=== PATIENT | female | born 1960 | race Caucasian/White ===

== ENCOUNTER 2024-09-02 14:12 | Emergency (ER) | payer OTHER, SELFPAY ==
[2024-09-02] VITALS (8 sets, daily range): BP systolic 78–124; BP diastolic 46–64; PULSE 54–65; RESP 14–18; TEMP 36.4; O2SAT 85–99
--- NOTE | ~2024-09-02 | XR_ITS ---
EXAMINATION: XR chest 1V DATE: 09/02/2024 15:38 INDICATION: Right lower quadrant abdominal pain. Nontraumatic right hip pain. TECHNIQUE: A single frontal view of the chest was obtained. COMPARISON: None. FINDINGS: There is mild atelectasis at left lung base. There is a small left pleural effusion. No pne umothorax. The heart size is normal. There are changes of anterior fusion procedure in cervical spine . IMPRESSION: 1. Small left pleural effusion. 2. Mild atelectasis at left lung base. Reviewed, dictated and finalized at location A.
--- NOTE | ~2024-09-02 | CT_ITS ---
CT abdomen pelvis w con Ordering provider: Yusuf Mart MD History: 64 years Female with . Right lower quadrant, right groin, right hip pain . Comparison: None. Technique: CT abdomen and pelvis with IV and without oral contrast. Automated exposure control and it erative reconstruction technique were employed. The dose-length product was 703.54 mGy-cm. 100 mL Omn ipaque 350 was given IV. Findings: VISUALIZED LOWER CHEST: Dependent atelectatic changes. 2 densities seen in the lateral aspect of the right lung base which may be focal atelectasis or nodules measuring 1.4 and 1.1 cm. Tiny nodule seen in the lingula measuring 7 mm. 3 months follow-up advised. UPPER ABDOMINAL ORGANS: Liver: Small hypodense area seen in the segment #8 which measures 12 cm. Most likely a cyst versus fo corrina fat infiltration. Ultrasound evaluation advised. Gallbladder: Distended. No stones. Spleen: Normal. Benign calcifications. Stomach/duodenum: Normal. Pancreas: Normal. Adrenals: Normal. Kidneys: Tiny cysts in the right and left kidney lower pole. PELVIC ORGANS: The bladder is underfilled. BOWEL AND MESENTERY: Colon: No evidence of diverticulitis. Normal appendix. Small Bowel: Normal. No obstruction. Peritoneum/mesentery: No free air or free fluid. No mesenteric lymphadenopathy. RETROPERITONEUM: Mild atheromatous disease of the abdominal aorta. No retroperitoneal lymphadenopat hy. MUSCULOSKELETAL: Superficial soft tissues: The superficial soft tissues are normal. Bones: Age appropriate degenerative changes of the spine. Bilateral sacroiliitis. IMPRESSION: 1. No evidence of appendicitis, diverticulitis or intestinal obstruction. 2. Distended gallbladder with no stones. 3. Hypodensity in the liver which may be focal fat infiltration and less likely a cyst. Ultrasound e valuation advised. Reviewed, dictated and finalized at location A. IMPRESSION: 1. No evidence of appendicitis, diverticulitis or intestinal obstruction. 2. Distended gallbladder with no stones. 3. Hypodensity in the liver which may be focal fat infiltration and less likel y a cyst. Ultrasound evaluation advised.
--- NOTE | ~2024-09-02 | XR_ITS ---
EXAMINATION: XR hip RT 2V w AP pelvis DATE: 09/02/2024 15:38 INDICATION: Right hip pain. TECHNIQUE: An anteroposterior view of the pelvis and 2 views of right hip were obtained. COMPARISON: None. FINDINGS: There is normal alignment at the hips. No fracture. There is mild osteoarthritis of the hip s. IMPRESSION: 1. Mild osteoarthritis of the hips. Reviewed, dictated and finalized at location A.
--- NOTE | 2024-09-02 14:41 | ED.GENADULT ---
HPI - General Adult General Chief complaint: Weakness Stated complaint: R pain radiating Time Seen by Provider: 09/02/24 14:40 Source: patient and EMS Mode of arrival: EMS History of Present Illness HPI narrative: Patient used the live by herself, had history of frequent falls, her daughter who lives close to us that concern and moved her to her house in the last 2 weeks. Patient workup today okay, at noon started having pain at the right hip anterior. She denies any trauma, fever, chills, nausea, vomiting, numbness or tingling or weakness of the right lower extremity. Patient reports her right hip pain worse with certain movement and position, better laying still History of diabetes, hypertension, hyperlipidemia, denies any anti-platelet or anticoagulant medication, does not smoke and drinks occasionally. Related Data Allergies Allergy/AdvReac Type Severity Reaction Status Date / Time No Known Allergies Allergy Verified 09/02/24 14:37 Review of Systems Review of Systems: All systems reviewed & are unremarkable except as noted in HPI and below Exam Narrative: General appearance: Well-developed, well-nourished Skin: Normal color Head: Normocephalic, nontraumatic Eyes: Clear conjunctiva ENT: Oropharynx normal, ears normal, nose normal Neck: Supple, nontender Chest and respiratory: Airway patent, no respiratory distress, no accessory muscle use Heart: Regular rate/rhythm Abdomen: Soft, nontender, no organomegaly, quiet bowel sounds Vascular: Normal peripheral pulses, normal capillary refill. Musculoskeletal: [id number] tenderness right iliac crest anteriorly and right hip anteriorly, limited range of motion of the right hip, no bruises, no swelling, no deformity. Neurologic: Alert and oriented ?3, EAP SPECIALIST is normal as tested, no gross motor deficit Course Vital Signs Vital signs: Vital Signs Temperature 36.4 C 09/02/24 14:18 Pulse Rate 54 L 09/02/24 14:18 Respiratory Rate 16 09/02/24 14:18 Blood Pressure 78/46 L 09/02/24 14:18 Pulse Oximetry 99 09/02/24 14:18 Oxygen Delivery Room Air 09/02/24 14:18 Temperature 36.4 C 09/02/24 14:18 Pulse Rate 61 09/02/24 18:00 Respiratory Rate 14 09/02/24 18:00 Blood Pressure 107/64 09/02/24 18:00 Pulse Oximetry 95 09/02/24 18:00 Oxygen Delivery Nasal Cannula 09/02/24 14:36 Oxygen Flow Rate 2 09/02/24 14:36 Medical Decision Making MDM Narrative Medical decision making narrative: PATIENT CAME TO THE ED WITH RIGHT ILIAC CREST PAIN ANTERIORLY AND RIGHT HIP. VITAL SIGNS SHOWING BLOOD PRESSURE 78/46 WHICH I WAS TOLD BY THE NURSE THAT WAS WRONG AND REPEATED BLOOD PRESSURE WAS WITHIN NORMAL LIMIT. PHYSICAL EXAMINATION SHOWED TENDERNESS AT THE RIGHT ILIAC CREST ANTERIORLY AND SLIGHT LIMITED RANGE OF MOTION OF THE RIGHT HIP DIFFERENTIAL DIAGNOSIS OSTEOARTHRITIS, STRAIN, SPRAIN, CONTUSION OF THE RIGHT HIP. POSSIBLE INTRA-ABDOMINAL PATHOLOGY. BLOOD WORKUP TODAY SHOWED WBC OF 7.5 CREATININE OF 1.1 URINALYSIS SHOWED EVIDENCE OF INFECTION CHEST X-RAY SHOWED NO ACUTE ABNORMALITY X-RAY OF THE RIGHT HIP WITH PELVIS SHOWED OSTEOARTHRITIS, CT ABDOMEN AND PELVIS WITH IV CONTRAST SHOWED NO SIGNIFICANT ABNORMALITY PATIENT RECEIVED 1 G OF ROCEPHIN IV, REPEATED BLOOD PRESSURE SHOWED NORMAL RESULTS, PATIENT WAS ABLE TO STAND AND WALK IN THE ED PRIOR TO DISCHARGE. DIAGNOSIS URINARY TRACT INFECTION AND RIGHT HIP OSTEOARTHRITIS DISCHARGED ON MACROBID AND DICLOFENAC THE PT WAS DISCHARGED TO HOME.THE PT,S CONDITION UPON DISCHARGE WAS FAIR,EDUCATION WAS PROVIDED TO THE PT IN REFERENCE TO THE FINAL IMPRESSION,DISCHARGE STUDY RESULTS,TREATMENT,PROGNOSIS AND NEED FOR FOLLOW UP . Medic
[2024-09-02] MEDS: SODIUM CHLORIDE 0.9% IV 1,000 ML 999 ML IV CONT (14:57)
[2024-09-02 15:19] LABS: Basophils Absolute Auto 0.1 K/mm3 (0.0-0.1); Basophils Percent Auto 0.7 % (0.2-1.2); Eosinophils Absolute Auto 0.1 K/mm3 (0-0.3); Eosinophils Percent Auto 0.8 % (0-4.4); Hematocrit 36.3 % (37.0-47.0); Hemoglobin 11.4 g/dL (12.0-15.0); Immature Granulocyte Absolute 0.03 K/mm3 (0.00-0.031); Immature Granulocyte Percent A 0.4 % (0-0.5); Lymphocytes Absolute Auto 2.14 K/mm3 (0.9-3.2); Lymphocytes Percent Auto 28.5 % (18.3-44.2); Mean Corpuscular HGB Conc 31.4 g/dl (32-36); Mean Corpuscular Hemoglobin 30.1 pg (26-34); Mean Corpuscular Volume 95.8 fl (80-100); Mean Platelet Volume 11.4 fl (7.4-10.4); Monocytes Absolute Auto 0.8 K/mm3 (0.1-0.6); Monocytes Percent Auto 10.8 % (2.6-8.5); Neutrophils Absolute Auto 4.4 K/mm3 (1.3-6.7); Neutrophils Percent Auto 58.8 % (45.5-73.1); Platelet Count Result 358 k/mm3 (150-375); Red Blood Count 3.79 M/mm3 (4.2-5.4); Red Cell Distribution Width 14.4 % (11.5-14.5); White Blood Count 7.5 K/mm3 (4.5-10.0)
[2024-09-02 15:31] LABS: Alanine Aminotransferase 16 U/L (6-35); Albumin Level 3.5 g/dL (3.5-5.1); Alkaline Phosphatase 81 U/L (38-126); Anion Gap 9 mmol/L (4-12); Aspartate Amino Transferase 33 U/L (14-36); Bilirubin,Total 0.4 mg/dL (0.2-1.3); Blood Urea Nitrogen 15 mg/dL (7-17); Calcium 8.6 mg/dL (8.4-10.2); Carbon Dioxide 28 mmol/L (22-30); Chloride 100 mmol/L (98-107); Estimated Glomerular Filt Rate 50; Glucose 124 mg/dL (65-110); Potassium 3.7 mmol/L (3.4-5.0); Sodium 137 mmol/L (137-145)
[2024-09-02 15:52] LABS: Add Urine Microscopic? YES; Appearance Urine Cloudy (Clear); Bacteria Urine None Seen /hpf; Bilirubin Urine 2+ (Negative); Blood Urine Negative (Negative); Color Urine Dark Yellow (Yellow); Glucose Urine UA Negative (Negative); Hyaline Casts Urine Present /lpf; Ketones Urine 1+ mg/dL (Negative); Leukocyte Esterase Ur 2+ LEU/UL (Negative); Nitrate Urine Negative (Negative); Non Pathogenic Casts >20; Protein Urine Trace mg/dL (Negative); Specific Grav Ur 1.028 (1.001-1.035); Squamous Epithelial Cell Urine Few /hpf (Few); WBC Urine 51-100 /hpf (0-3); pH Urine 5.5 (5.0-9.0)
[2024-09-02] MEDS: ONDANSETRON INJ 4 MG/2 ML VIAL IV PUSH (16:43)
[2024-09-02] MEDS: MORPHINE SULFATE (*CRX) 4 MG/ML INJ IV PUSH (16:43)
--- NOTE | 2024-09-02 18:51 | PC.NURSE ---
Able to ambulate on right leg.
== END 2024-09-02 19:01 | disposition home or self-care (01) ==
PROVIDERS: Emergency Provider Emergency Medicine
DX: N39.0 Urinary tract infection, site not specified (principal); M25.551 Pain in right hip; I10 Essential (primary) hypertension; E11.9 Type 2 diabetes mellitus without complications; E78.5 Hyperlipidemia, unspecified; M16.0 Bilateral primary osteoarthritis of hip; R93.2 Abnormal findings on diagnostic imaging of liver and biliary tract
CPT/HCPCS: 36415; 71045; 73502; 74177; 80053; 81001; 85025; 87086; 96361; 96365; 96375; 99284; J0696; J2270; J2405; J7030; Q9967